=== PATIENT | male | born 1970 | race Caucasian/White ===

== ENCOUNTER 2017-12-31 11:53 | Emergency (ER) | payer OTHER ==
[2017-12-31] MEDS ORDERED: Bupivacaine 0.5% 10 ML SDV INJECT ONE (12:34)
[2017-12-31] MEDS ORDERED: Diphtheria,Pertussis(Acell),Tetanus Vaccine 0.5 ML SDV IM ONE (13:12)
--- NOTE | 2017-12-31 13:17 | EDM.PDOC ---
ED HPI GENERAL MEDICAL PROBLEM - General Chief Complaint: Laceration Stated Complaint: Left finger laceration Time Seen by Provider: 12/31/17 12:25 Source of Information: Reports: Patient, RN Notes Reviewed History Limitations: Reports: No Limitations - History of Present Illness INITIAL COMMENTS - FREE TEXT/NARRATIVE: 47 year old male presents to the ED today with an injury to his left middle finger. Injury occurred while using a table saw. He has a deep, extensive laceration to his finger. No additional injury. He has full ROM. Injury occurred shortly prior to arrival. Last tetanus is unknown. Treatments SOCK FOLDER: Reports: Other (see below) Other Treatments SOCK FOLDER: pressure - Related Data Allergies Allergy/AdvReac Type Severity Reaction Status Date / Time No Known Allergies Allergy Verified 12/31/17 12:07 Home Meds: Home Meds Acetaminophen/HYDROcodone [Weir 325-5 MG] 1 tab PO Q4H PRN #20 tablet 12/31/17 [Rx] Cephalexin 500 mg PO TID #28 capsule 12/31/17 [Rx] Past Medical History - Past Health History Medical/Surgical History: Denies Medical/Surgical History Social & Family History - Tobacco Use Smoking Status *Q: Current Every Day Smoker Years of Tobacco use: 25 Packs/Tins Daily: 1 - Caffeine Use Caffeine Use: Reports: Soda - Recreational Drug Use Recreational Drug Use: No ED ROS GENERAL - Review of Systems Review Of Systems: See Below Musculoskeletal: Reports: Hand Pain Skin: Reports: Wound Neurological: Denies: Numbness, Tingling ED EXAM, SKIN/RASH Exam: See Below Exam Limited By: No Limitations General Appearance: Alert, WD/WN, No Apparent Distress, Anxious Extremities: Other (Patient has full ROM to his left middle finger indicating that flexor and extensor tendons are intact. He has good sensation, neurovascular status is intact. ) Neurological: Alert, Normal Cognition, No Motor/Sensory Deficits. No: Sensory/ Motor Deficit Skin: Warm, Dry, Normal Color, Other (Extensive, irregular, wound to the left middle finger. The wound measures approximately 7cm. It involves both the volar and dorsal aspect of the finger. It appears as though the blade cut into his finger, on the radial side of the finger. The nail and nailbed was spared however the laceration is near the lateral edge of the nail. Neurovascular status is intact. No ruptured ligament appreciated. Wound was cleansed and wound base explored. No bony exposure appreciated. ) Location, Skin: Lower Extremity, Left ED SKIN PROCEDURES - Laceration/Wound Repair Left Finger Lac/Wound length In cm: 7 Appearance: Stellate, Mildly Contaminated Distal NVT: Neuro & Vascular Intact, No Tendon Injury Anesthetic Type: Digital Local Anesthesia - Bupivicaine (Marcaine): 0.5% Plain Local Anesthetic Volume: Other (10) Skin Prep: Saline Exploration/Debridement/Repair: Wound Explored, In a Bloodless Field, Explored to Base, No Foreign Material Found, Wound Margins Revised, Multiple Flaps Aligned Closed with: Sutures Suture Size: 3-0 # of Sutures: 13 Suture Type: Nylon, Interrupted, Simple Sterile Dressing Applied: Nurse Tetanus Status Addressed: Yes Complications: No Course - Vital Signs Last Recorded V/S: Last Vital Signs Temp 98.8 F 12/31/17 12:15 Pulse 75 12/31/17 12:15 Resp 20 12/31/17 12:15 BP 136/80 12/31/17 12:15 Pulse Ox 100 12/31/17 12:15 - Orders/Labs/Meds Orders: Active Orders 24 hr Category Date Time Status Vaccines to be Administered [RC] PER UNIT ROUTINE Care 12/31/17 13:12 Ordered Fingers Third Digit Lt F2 [CR] Stat Exams 12/31/17 13:12 Ordered Meds: Medications Discontinued Medications Generic Name Dose Route Start Last Admin Trade Name Bin PRN Reason Stop Dose Admin Bupivacaine HCl 10 ml 12/31/17 12:34 12/31/17 12:39 Sensorcaine-Mpf 0.5% INJECT 12/31/17 12:35 10 ml ONETIME ONE Administration Diphtheria/Tetanus/Acell Pertussis 0.5 ml 12/31/17 13:12 12/31/17 13:45 Adacel IM 12/31/17 13:13 0.5 ml .ONCE ONE Administration - Re-Assessments/Exams Free Text/Narrative Re-Assessment/Exam: Digital block was performed. Patient had good results with this. The laceration was then repaired to the best of my ability. There is extensive involvement in the tip of the finger and I therefore was unable to fully approximate the wound edges on the distal aspect of the wound. The dorsal and volar aspects of the wound were easily approximated. No foreign material found. No evidence of tendon rupture. X-rays were obtained and there is involvement of the bone. I do not appreciate a true fracture, however it appears as though the blade did carmelo the bone. Formal radiologist interpretation is pending. Patient will be placed on Keflex 500 mg TID x7 days and Hydrocodone PRN pain. He was placed in a tube gauze and splint. He is to f/u with Ortho this week. Departure - Departure Time of Disposition: 13:31 Disposition: Home, Self-Care 01 Condition: Good Clinical Impression: Laceration of finger Qualifiers: Encounter type: initial encounter Finger: middle finger Damage to nail status: without damage Foreign body presence: without foreign body Laterality: left Qualified Code(s): S61.213A - Laceration without foreign body of left middle finger without damage to nail, initial encounter - Discharge Information Prescriptions: Acetaminophen/HYDROcodone [Weir 325-5 MG] 1 tab PO Q4H PRN #20 tablet PRN Reason: Pain Cephalexin 500 mg PO TID #28 capsule Instructions: Laceration Care, Adult Referrals: PCP,None [Primary Care Provider] - Meng Jones MD [Physician] - Forms: ED Department Discharge, ED Return to Work/School Form Additional Instructions: Laceration with suture repair Try to keep initial dressing in place for 24 hours After 24 hours, you can gently wash the wound with gentle soap and water Do not submerge the area in water until the sutures are out Apply antibiotic ointment and keep the wound covered with a dry bandage once the wound has stopped draining. Sutures need to be removed in 10 days or by direction of Orthopedic Surgeon Follow-up with Orthopedic Surgeon Dr. Jones ([phone]) or Dr. Dukes ([phone] ) this week for recheck and for continued monitoring. Return to clinic if signs or symptoms of infection arise, including increased redness, swelling, drainage, or fever Rest, ice and elevate Tylenol or Ibuprofen as needed for pain Weir 1 tab every 4-6 hours as needed for more severe pain Do not exceed 3000mg of Tylenol per day Wear splint until you follow-up with Orthopedics - My Orders Last 24 Hours: My Active Orders 12/31/17 13:12 Vaccines to be Administered [RC] PER UNIT ROUTINE Fingers Third Digit Lt F2 [CR] Stat - Assessment/Plan Last 24 Hours: My Active Orders 12/31/17 13:12 Vaccines to be Administered [RC] PER UNIT ROUTINE Fingers Third Digit Lt F2 [CR] Stat
--- NOTE | 2018-01-01 12:53 | CR ---
Left third finger: Four views of the left third finger were obtained. Comparison: No previous study. Soft tissue injury as well as bony densities are noted within the soft tissues. Bony defect also noted within the distal shaft shaft of the middle phalanx. No complete fracture is seen. Impression: 1. Bony defect without complete fracture involving the middle phalanx of the third finger. Soft tissue injury is seen as well as soft tissue calcifications from the bony injury. Diagnostic code #3
== END 2017-12-31 14:01 | disposition home or self-care (01) ==
LOC: JD.ED 11:53
DX: S61.213A Laceration without foreign body of left middle finger without damage to nail, initial encounter (principal); F17.210 Nicotine dependence, cigarettes, uncomplicated; W26.9XXA Contact with unspecified sharp object(s), initial encounter; Z23 Encounter for immunization
CPT/HCPCS: 12002; 73140-26-F2; 73140-F2; 90471; 90715; 99283-25

== ENCOUNTER 2024-03-05 12:27 | Emergency (ER) | payer OTHER | END 2024-03-05 14:00 | disposition home or self-care (01) | LOC: JD.ED 12:27 | DX: S46.212A Strain of muscle, fascia and tendon of other parts of biceps, left arm, initial encounter (principal); X50.9XXA Other and unspecified overexertion or strenuous movements or postures, initial encounter; Y92.009 Unspecified place in unspecified non-institutional (private) residence as the place of occurrence of the external cause | CPT/HCPCS: 99282; 99283 ==